=== PATIENT | female | born 1955 | race Two or more races ===

== ENCOUNTER 2019-04-22 11:03 | Emergency (ER) | payer SELFPAY ==
--- NOTE | 2019-04-22 11:32 | ER Document Report ---
ED Medical Screen (RME) - General Chief Complaint: Headache Stated Complaint: BLOOD PRESSURE ISSUES Time Seen by Provider: 04/22/19 11:26 Mode of Arrival: Ambulatory Information source: Patient Notes: 63-year-old female presented to ED for complaint of left shoulder pain yesterday so she went to the store and checked her blood pressure and it was high. She states she woke up dizzy this morning so she came to the emergency room to get it checked out. States she does have a history of diabetes and has had a abdominoplasty. She states that the only medical history she does not smoke drink or do any drugs. Patient is alert oriented respirations regular and unlabored speaking in full sentences. I have greeted and performed a rapid initial assessment of this patient. A comprehensive ED assessment and evaluation of the patient, analysis of test results and completion of medical decision making process will be conducted by an additional ED providers. Dictation of this chart was performed using voice recognition software; therefore, there may be some unintended grammatical errors. TRAVEL OUTSIDE OF THE [place] IN LAST 30 DAYS: No - Related Data Allergies/Adverse Reactions: No Known Allergies Allergy (Unverified 04/22/19 11:05) Physical Exam - Vital signs Vitals: Temp Pulse Resp BP Pulse Ox 98.1 F 88 16 143/77 H 98 04/22/19 11:14 04/22/19 11:14 04/22/19 11:14 04/22/19 11:14 04/22/19 11:14 Course - Vital Signs Vital signs: Temp Pulse Resp BP Pulse Ox 98.1 F 88 16 143/77 H 98 04/22/19 11:14 04/22/19 11:14 04/22/19 11:14 04/22/19 11:14 04/22/19 11:14
[2019-04-22 11:59] LABS: APPEARANCE,URINE SLIGHTLY-CLOUDY; BILIRUBIN,URINE NEGATIVE (NEGATIVE); COLOR,URINE YELLOW; GLUCOSE, URINE NEGATIVE (NEGATIVE); KETONES,URINE NEGATIVE (NEGATIVE); LEUKOCYTE ESTERASE,URINE NEGATIVE (NEGATIVE); NITRITE,URINE NEGATIVE (NEGATIVE); PROTEIN,URINE NEGATIVE (NEGATIVE); URINE SPECIFIC GRAVITY 1.009; UROBILINOGEN,URINE NEGATIVE mg/dL (<2.0)
--- NOTE | 2019-04-22 12:10 | RADIOLOGY REPORT (SQ) ---
EXAM DESCRIPTION: CHEST 2 VIEWS COMPLETED DATE/TIME: 04/22/2019 11:56 am REASON FOR STUDY: Dizziness, left shoulder pain COMPARISON: None. EXAM PARAMETERS: NUMBER OF VIEWS: two views TECHNIQUE: Digital Frontal and Lateral radiographic views of the chest acquired. RADIATION DOSE: NA LIMITATIONS: none FINDINGS: LUNGS AND PLEURA: No opacities, masses or pneumothorax. No pleural effusion. MEDIASTINUM AND HILAR STRUCTURES: No masses or contour abnormalities. HEART AND VASCULAR STRUCTURES: Heart normal size. No evidence for failure. BONES: No acute findings. HARDWARE: None in the chest. OTHER: No other significant finding. IMPRESSION: NO ACUTE RADIOGRAPHIC FINDING IN THE CHEST. TECHNICAL DOCUMENTATION: JOB ID: [id number] [place]-[id number] 2010 [employer]- All Rights Reserved Reading location - IP/workstation name: [email or web address]
[2019-04-22 12:19] LABS: ABSOLUTE BASOPHILS # (AUTO) 0.1 10^3/uL (0.0-0.2); ABSOLUTE EOSINOPHILS # (AUTO) 0.1 10^3/uL (0.0-0.6); ABSOLUTE LYMPHOCYTES (AUTO) 3.5 10^3/uL (0.5-4.7); ABSOLUTE MONOCYTES (AUTO) 0.5 10^3/uL (0.1-1.4); ABSOLUTE NEUT (AUTO) 6.9 10^3/uL (1.7-8.2); BASOPHILS % (AUTO) 0.5 % (0-2); EOSINOPHILS % (AUTO) 0.5 % (0-6); HEMOGLOBIN 15.5 g/dL (12.0-15.5); MEAN CORPUSCULAR HEMOGLOBIN 29.7 pg (27.0-33.4); MEAN CORPUSCULAR HGB CONC 34.4 g/dL (32.0-36.0); MEAN CORPUSCULAR VOLUME 86 fl (80-97); MONOCYTES % (AUTO) 4.8 % (3-13); PLATELET COUNT 284 10^3/uL (150-450); RED BLOOD COUNT 5.22 10^6/uL (3.72-5.28); RED CELL DISTRIBUTION WIDTH 12.9 % (11.5-14.0); SEGMENTED NEUTROPHILS % (AUTO) 62.2 % (42-78); TOTAL CELLS COUNTED % (AUTO) 100 %; WHITE BLOOD COUNT 11.1 10^3/uL (4.0-10.5)
[2019-04-22 12:41] LABS: ALANINE AMINOTRANSFERASE 41 U/L (9-52); ALBUMIN 4.9 g/dL (3.5-5.0); ALKALINE PHOSPHATASE 83 U/L (38-126); ANION GAP 12 (5-19); ASPARTATE AMINO TRANSFERASE 47 U/L (14-36); BILIRUBIN,DIRECT 0.4 mg/dL (0.0-0.4); BILIRUBIN,TOTAL 0.6 mg/dL (0.2-1.3); BLOOD UREA NITROGEN 22 mg/dL (7-20); CALCIUM 9.8 mg/dL (8.4-10.2); CARBON DIOXIDE 26 mmol/L (22-30); CHLORIDE 103 mmol/L (98-107); GLUCOSE 111 mg/dL (75-110); POTASSIUM 4.2 mmol/L (3.6-5.0); SODIUM 140.9 mmol/L (137-145); TOTAL PROTEIN 8.9 g/dL (6.3-8.2)
--- NOTE | 2019-04-22 14:57 | ER Document Report ---
ED General - General Chief Complaint: Headache Stated Complaint: BLOOD PRESSURE ISSUES Time Seen by Provider: 04/22/19 11:26 Mode of Arrival: Ambulatory TRAVEL OUTSIDE OF THE [place] IN LAST 30 DAYS: No - HPI Notes: Patient is a 63-year-old female that presents to the emergency department for chief complaint of hypertension. Patient states yesterday while at [facility] she checked her blood pressure and it was 128/80. She denies history of hypertension in the past. She states she checked it because she was having an aching in her left shoulder. She denies injury or trauma to the left shoulder. She denies any current symptoms. She did not have any chest pain, shortness of breath, headache, recent illness, nausea/vomiting, diaphoresis, numbness or weakness. She is in town visiting from the [place] and plans to return in the next 3 to 4 weeks. Currently she states she feels normal. Patient is [place]-speaking and offered formal translation services but declined stating a friend could translate. Past Medical History: Negative Past Surgical History: Negative Social History: Denies drugs alcohol and tobacco Family History: Reviewed and noncontributory for presenting illness Allergies: Reviewed, see documented allergy list. REVIEW OF SYSTEMS: CONSTITUTIONAL : No fever No chills No diaphoresis No recent illness EENT: No vision changes No congestion No sore throat CARDIOVASCULAR: No chest pain No palpitations RESPIRATORY: No shortness of breath No cough No difficulty breathing GASTROINTESTINAL: No abdominal pain No nausea No vomiting No diarrhea GENITOURINARY: No dysuria No hematuria No difficulty urinating MUSCULOSKELETAL: No back pain No leg pain Left shoulder pain normal left shoulder exam, SKIN: No rashes No lesions LYMPHATIC: No swollen, enlarged glands. NEUROLOGICAL: No lightheadedness No headache No weakness No paresthesias PSYCHIATRIC: No anxiety No depression PHYSICAL EXAMINATION: Vital signs reviewed, nursing noted reviewed. GENERAL: Well-appearing, well-nourished and in no acute distress. HEAD: Atraumatic, normocephalic. EYES: Eyes appear normal, extraocular movements intact, sclera anicteric, conjunctiva are normal. ENT: nares patent, oropharynx clear without exudates. Moist mucous membranes. NECK: Normal range of motion, supple without lymphadenopathy LUNGS: Breath sounds clear to auscultation bilaterally and equal. No wheezes rales or rhonchi. HEART: Regular rate and rhythm without murmurs ABDOMEN: Soft, nontender, normoactive bowel sounds. No rebound, guarding, or rigidity. No masses appreciated. EXTREMITIES: Nontender, good range of motion, no pitting or edema. NEUROLOGICAL: No focal neurological deficits. Moves all extremities spontaneo usly Motor and sensory grossly intact on exam. PSYCH: Normal mood, normal affect. SKIN: Warm, Dry, normal turgor, no rashes or lesions noted on exposed skin - Related Data Allergies/Adverse Reactions: No Known Allergies Allergy (Unverified 04/22/19 11:05) Past Medical History - General Information source: Patient - Social History Smoking Status: Never Smoker Chew tobacco use (# tins/day): No Frequency of alcohol use: None Drug Abuse: None Family History: Reviewed & Not Pertinent Patient has suicidal ideation: No Patient has homicidal ideation: No Endocrine Medical History: Reports: Hx Diabetes Mellitus Type 2 Renal/ Medical History: Denies: Hx Peritoneal Dialysis Past Surgical History: Reports: Hx Abdominal Surgery - tummy tuck Physical Exam - Vital signs Vitals: Temp Pulse Resp BP Pulse Ox 98.1 F 88 16 143/77 H 98 04/22/19 11:14 04/22/19 11:14 04/22/19 11:14 04/22/19 11:14 04/22/19 11:14 Course - Re-evaluation Re-evalutation: 04/22/19 14:56 Vitals reviewed. Nursing notes reviewed. Patient is well-appearing. She does have slightly elevated blood pressure in the emergency room. She has no signs of endorgan damage on her work-up. Chest x-ray shows no cardiomegaly or other acute cardiopulmonary process. She denies ever having a headache to me and CT brain is not currently indicated given that she is asymptomatic with no focal neurologic deficits. I did advise that she have her blood pressure rechecked by her primary care provider when she returns back to the [place] as she may require blood pressure medication. Patient is in agreement with this plan of care and stable for discharge. Laboratory 04/22/19 04/22/19 04/22/19 11:40 12:10 12:10 WBC 11.1 H RBC 5.22 Hgb 15.5 Hct 45.0 MCV 86 MCH 29.7 MCHC 34.4 RDW 12.9 Plt Count 284 Seg Neutrophils % 62.2 Lymphocytes % 32.0 Monocytes % 4.8 Eosinophils % 0.5 Basophils % 0.5 Absolute Neutrophils 6.9 Absolute Lymphocytes 3.5 Absolute Monocytes 0.5 Absolute Eosinophils 0.1 Absolute Basophils 0.1 Sodium 140.9 Potassium 4.2 Chloride 103 Carbon Dioxide 26 Anion Gap 12 BUN 22 H Creatinine 0.80 Est GFR ( Amer) > 60 Est GFR (Non-Af Amer) > 60 Glucose 111 H Calcium 9.8 Total Bilirubin 0.6 Direct Bilirubin 0.4 Neonat Total Bilirubin Not Reportable Neonat Direct Bilirubin Not Reportable Neonat Indirect Bili Not Reportable AST 47 H ALT 41 Alkaline Phosphatase 83 Total Protein 8.9 H Albumin 4.9 Urine Color YELLOW Urine Appearance SLIGHTLY-CLOUDY Urine pH 7.0 Ur Specific [place] 1.009 Urine Protein NEGATIVE Urine Glucose (UA) NEGATIVE Urine Ketones NEGATIVE Urine Blood NEGATIVE Urine Nitrite NEGATIVE Urine Bilirubin NEGATIVE Urine Urobilinogen NEGATIVE Ur Leukocyte Esterase NEGATIVE Squamous Epi Cells Auto <1 Urine Mucus (Auto) OCC Urine Ascorbic Acid NEGATIVE Chest X-Ray 04/22/19 11:30 IMPRESSION: NO ACUTE RADIOGRAPHIC FINDING IN THE CHEST. - Vital Signs Vital signs: Temp Pulse Resp BP Pulse Ox 98.5 F 88 16 138/93 H 100 04/22/19 14:01 04/22/19 11:14 04/22/19 14:01 04/22/19 14:01 04/22/19 14:01 - Laboratory Result Diagrams: 04/22/19 12:10 04/22/19 12:10 Laboratory results interpreted by me: 04/22/19 04/22/19 12:10 12:10 WBC 11.1 H BUN 22 H Glucose 111 H AST 47 H Total Protein 8.9 H Discharge - Discharge Clinical Impression: Elevated blood pressure reading Condition: Stable Disposition: HOME, SELF-CARE Instructions: High Blood Pressure ([facility]) Additional Instructions: Please return to the emergency department if you have any worsening, or concern of your symptoms. Please return to the emergency department if you develop chest pain, difficulty breathing, severe abdominal pain, or ongoing vomiting. Please follow-up with your primary care physician in 2-3 days and any other recommended physicians. If prescribed, take all medications as directed. If you have any questions or concerns do not hesitate to return the emergency department for evaluation. Have your blood pressure rechecked by your primary care doctor when you return home to the [facility] Forms: Elevated Blood Pressure Referrals: [facility] [Provider Group] - Follow up as needed
[2019-04-22 15:17] VITALS: BP 121/87
== END 2019-04-22 15:18 | disposition home or self-care (01) ==
LOC: EDBD 11:03 → ER 11:03
DX: I10 Essential (primary) hypertension (principal); R51 Headache
CPT/HCPCS: 36415; 71046; 80053; 81001; 85025; 99283